=== PATIENT | male | born 1960 | race Caucasian/White ===

== ENCOUNTER 2020-02-05 09:19 | Emergency (ER) | payer OTHER ==
[~2020-02-05] VITALS: Ht 170.2 cm; Wt 75.8 kg
[2020-02-05 09:23] VITALS: BP 155/89
--- NOTE | 2020-02-05 09:48 | NUR ---
ERP TO BEDSIDE. PT LAYING IN [place]. NO SIGNS OF DISTRESS. WILL CONTINUE TO MONITOR.
== END 2020-02-05 10:20 | disposition home or self-care (01) ==
LOC: ED 09:54
DX: K40.20 Bilateral inguinal hernia, without obstruction or gangrene, not specified as recurrent (principal)
CPT/HCPCS: 99281